=== PATIENT | male | born 1990 | race Caucasian/White ===

== ENCOUNTER 2017-06-22 17:49 | Emergency (ER) | payer SELFPAY ==
[~2017-06-22] VITALS: Ht 167.6 cm; Wt 89.7 kg
[~2017-06-22 17:49] MED LIST: WLLXL150 PO
[2017-06-22 17:57] VITALS: TEMP 37.1; Ht 167.6 cm; Wt 89.7 kg
[2017-06-22] MEDS ORDERED: SODIUM CHLORIDE 0.9% 1000ML 1,000 ML IV STA (18:10)
[2017-06-22] MEDS ORDERED: MoRPHine SULFATE 4 MG/ML 1 ML CARP\\VIAL IV STA (18:10)
[2017-06-22] MEDS ORDERED: DIPHTHERIA/TETANUS/PERTUSSIS 0.5 ML SYR/VIAL IM. ONE (18:15)
[2017-06-22] MEDS ORDERED: CITA40TA12 PO (18:49)
[2017-06-22 18:51] LABS: BASO % 0.2 %; BASO ABS # 0.02 K/uL (0-0.2); COMPLETE YES; EOS % 0.3 %; HEMATOCRIT 40.4 % (42-52); IG% 0.8 %; LYMPH % 15.8 %; MEAN CELL VOLUME 96.2 fL (80-100); MEAN CORPUSCULAR HEMOGLOBIN 33.8 pg (25-34); MEAN CORPUSCULAR HGB CONC 35.1 g/dl (32-36); MEAN PLATELET VOLUME 10.4 fL (7.4-10.4); MONO % 4.5 %; NEUT % 78.4 %; PLATELET COUNT 219 K/uL (130-400); WHITE BLOOD COUNT 12.69 K/uL (4.8-10.8)
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
[2017-06-22 19:06] LABS: BUN/CREATININE RATIO 13.5 (10-20); CALCIUM 8.8 mg/dl (8.5-10.1); CREATININE 1.2 mg/dl (0.60-1.40); POTASSIUM 3.5 mmol/L (3.5-5.1)
[2017-06-22 19:08] LABS: PROTHROMBIN TIME (PATIENT) 10.9 SECONDS (9.0-12.0)
[2017-06-22 19:24] VITALS: PULSE 91
[2017-06-22] MEDS ORDERED: LIDOCAINE/EPINEPHRINE 1% 20 ML VIAL INFIL ONE (19:30)
[2017-06-22] MEDS ORDERED: HYDROCODONE/ACETAMOPHEN 5/325MG TAB PO STA (19:52)
[2017-06-22] MEDS ORDERED: NORCO 5/325MG HOME PACK PO ONE (20:00)
[2017-06-22] MEDS ORDERED: TRAM-10 PO (20:04)
[2017-06-22] MEDS ORDERED: OXYC1TAB3 PO (20:04)
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
[2017-06-22 20:30] VITALS: BP 146/90; O2SAT 95
== END 2017-06-22 20:31 | disposition home or self-care (01) ==
LOC: EDBD 17:49 → C.EDB 17:51
DX: S01.81XA Laceration without foreign body of other part of head, initial encounter (principal); X58.XXXA Exposure to other specified factors, initial encounter; J45.909 Unspecified asthma, uncomplicated; Z82.49 Family history of ischemic heart disease and other diseases of the circulatory system; F17.200 Nicotine dependence, unspecified, uncomplicated; Z23 Encounter for immunization

== ENCOUNTER 2017-07-01 13:04 | Emergency (ER) | payer SELFPAY ==
[~2017-07-01] VITALS: Ht 167.6 cm; Wt 91.0 kg
[~2017-07-01 13:04] MED LIST changes: +CITA40TA12 PO; +OXYC1TAB3 PO; +TRAM-10 PO; -WLLXL150 PO
[2017-07-01 13:09] VITALS: BP 130/88; PULSE 96; TEMP 36.6; O2SAT 96; Ht 167.6 cm; Wt 91.0 kg
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
== END 2017-07-01 13:36 | disposition home or self-care (01) ==
LOC: C.EDB 13:06 → C.EDD 13:36
DX: S01.01XD Laceration without foreign body of scalp, subsequent encounter (principal); X58.XXXD Exposure to other specified factors, subsequent encounter